=== PATIENT | male | born 1955 | race American Indian/Alaskan Native ===

== ENCOUNTER 2016-07-18 09:59 | Inpatient (IN) | payer OTHER ==
[2016-07-18 10:03] LABS: INR 1.5; POTASSIUM 3.7 mmol/L (3.6-5.2)
== END 2016-07-18 11:43 | disposition home or self-care (01) | DRG 243 ==
LOC: C.7T 09:59
PROVIDERS: ADMIT Internal Medicine; ATTEND Internal Medicine
DX: M54.5 Low back pain (principal)